=== PATIENT | female | born 1995 | race Hispanic/Latino ===

== ENCOUNTER 2022-03-27 15:50 | Emergency (ER) | payer SELFPAY ==
[~2022-03-27] VITALS: Ht 175.3 cm; Wt 81.2 kg
[2022-03-27 16:40] VITALS: BP 128/55
[2022-03-27] MEDS ORDERED: ACETAMINOPHEN 500 MG TABLET PO ONE (18:30)
[2022-03-27] MEDS ORDERED: IBUP-2070 PO (20:31)
[2022-03-27] MEDS ORDERED: CYCL10TA16 PO (20:31)
== END 2022-03-27 20:35 | disposition home or self-care (01) ==
LOC: EDH 15:50
DX: S39.012A Strain of muscle, fascia and tendon of lower back, initial encounter (principal); G89.29 Other chronic pain; X58.XXXA Exposure to other specified factors, initial encounter; Y93.89 Activity, other specified; Y92.89 Other specified places as the place of occurrence of the external cause; Y99.8 Other external cause status
CPT/HCPCS: 72220